=== PATIENT | female | born 1995 | race Caucasian/White ===

== ENCOUNTER 2022-06-13 15:06 | Emergency (ER) | payer OTHER ==
[~2022-06-13] VITALS: Ht 160 cm; Wt 57.3 kg
[2022-06-13] MEDS ORDERED: ZOFRAN ODT4 MG PO (15:48)
[2022-06-13 16:00] VITALS: BP 118/73; PULSE 85; TEMP 98.2
== END 2022-06-13 16:00 | disposition home or self-care (01) ==
LOC: COL.ER 15:06
DX: S06.0X0A Concussion without loss of consciousness, initial encounter (principal); R22.0 Localized swelling, mass and lump, head; V89.2XXA Person injured in unspecified motor-vehicle accident, traffic, initial encounter; Y92.410 Unspecified street and highway as the place of occurrence of the external cause